=== PATIENT | male | born 2000 | race American Indian/Alaskan Native ===

== ENCOUNTER 2021-06-17 01:47 | Emergency (ER) | payer BC ==
[2021-06-17 03:08] VITALS: BP 133/68
--- NOTE | 2021-06-17 06:58 | Emergency Department Report ---
ED Upper Extremity Inj HPI - General Chief Complaint: Skin/Abscess/Foreign Body Stated Complaint: LARGE SPLINTER Source: patient Mode of arrival: Ambulatory Limitations: No Limitations - History of Present Illness Initial Comments: Patient is a 20-year-old -[place] male with no past medical history presents to the ED with complaint of acute onset persistent painful posterior left elbow puncture wound with suspected foreign body embedded in the tissues after he bumped his left elbow against a wooden beam at work and which resulted in a piece of splinter getting stuck in his skin and his tissues of this left elbow about 8 hours ago. Patient states that he initially presented at an urgent care clinic but the staff were unable to remove the foreign body in the left elbow. Patient states that he is up-to-date with all his tetanus vaccinations. Patient denies numbness and tingling or weakness of left arm, dizziness, syncope, fall, nausea and vomiting, chest pain or shortness of breath and neck pain. MD Complaint: Injury to:: left, elbow (posterior left elbow puncture wound with foreign body) -: Sudden, hour(s) (8) Other Extremity Injury: Elbow: Left (Posterior left elbow pain due to puncture wound with foreign body) Other Injuries: none Handedness: right Place: work Severity scale (0 -10): 6 Worsens With: movement of extremity Context: laceration (Posterior left elbow pain due to puncture wound with foreign body embedded in the tissues), injury Associated Symptoms: denies other symptoms. denies: weakness, suspects foreign body, nausea/vomiting, heard/felt popping sensat - Related Data Previous Rx's Medication Instructions Recorded Last Taken Type Ibuprofen [Motrin] 800 mg PO Q8HR PRN #30 tablet 06/17/21 Unknown Rx Sulfamethoxazole/Trimethoprim 1 each PO Q12H #20 tablet 06/17/21 Unknown Rx [Bactrim DS TAB] Allergies Allergy/AdvReac Type Severity Reaction Status Date / Time No Known Allergies Allergy Unverified 06/17/21 03:06 ED Review of Systems ROS: Stated complaint: LARGE SPLINTER Other details as noted in HPI Constitutional: denies: chills, fever Eyes: denies: eye pain, eye discharge, vision change ENT: denies: ear pain, throat pain Respiratory: denies: cough, shortness of breath, wheezing Cardiovascular: denies: chest pain, palpitations Endocrine: no symptoms reported Gastrointestinal: denies: abdominal pain, nausea, diarrhea Genitourinary: denies: urgency, dysuria Musculoskeletal: arthralgia (Procedure left elbow pain due to a small puncture wound with foreign body embedded in the tissues of the left elbow). denies: back pain, joint swelling Skin: other (Puncture wound of posterior left elbow with suspected foreign body in the tissues). denies: rash, lesions Neurological: denies: headache, weakness, paresthesias Psychiatric: denies: anxiety, depression Hematological/Lymphatic: denies: easy bleeding, easy bruising ED Past Medical Hx - Past Medical History Previous Medical History?: No - Surgical History Past Surgical History?: No - Medications Home Medications: Home Medications Medication Instructions Recorded Confirmed Last Taken Type Ibuprofen [Motrin] 800 mg PO Q8HR PRN #30 tablet 06/17/21 Unknown Rx Sulfamethoxazole/Trimethoprim 1 each PO Q12H #20 tablet 06/17/21 Unknown Rx [Bactrim DS TAB] ED Physical Exam - General Limitations: No Limitations General appearance: alert, in no apparent distress - Head Head exam: Present: atraumatic, normocephalic, normal inspection - Eye Eye exam: Present: normal appearance, PERRL, EOMI Pupils: Present: normal accommodation - ENT ENT exam: Present: normal exam, normal orophraynx, mucous membranes moist, TM's normal bilaterally, normal external ear exam - Neck Neck exam: Present: normal inspection, full ROM - Respiratory Respiratory exam: Present: normal lung sounds bilaterally. Absent: respiratory distress, wheezes, rales, chest wall tenderness, accessory muscle use, prolonged expiratory - Cardiovascular Cardiovascular Exam: Present: regular rate, normal rhythm, normal heart sounds. Absent: systolic murmur, diastolic murmur, rubs, gallop - GI/Abdominal GI/Abdominal exam: Present: soft, normal bowel sounds. Absent: tenderness, guarding, hyperactive bowel sounds, hypoactive bowel sounds, organomegaly - Extremities Exam Extremities exam: Present: normal inspection, tenderness (Palpable localized posterior left elbow soft tissue tenderness with palpable foreign body embedded in the skin.). Absent: full ROM, normal capillary refill, pedal edema, joint swelling, calf tenderness - Back Exam Back exam: Present: normal inspection, full ROM. Absent: tenderness, CVA tenderness (R), CVA tenderness (L), muscle spasm, paraspinal tenderness, vertebral tenderness - Neurological Exam Neurological exam: Present: alert, oriented X3, CN II-XII intact, normal gait, reflexes normal - Psychiatric Psychiatric exam: Present: normal affect, normal mood - Skin Skin exam: Present: warm, dry, intact, normal color, other (Small puncture wound on posterior left elbow with foreign body within the tissues). Absent: rash ED Course Vital Signs 06/17/21 03:07 Temperature 98.4 F Pulse Rate 78 Respiratory 18 Rate Blood Pressure 133/68 O2 Sat by Pulse 99 Oximetry - Procedure Description Procedures done: Foreign body removal from puncture wound of posterior left elbow: -The area was cleaned thoroughly with normal saline and Betadine solution. Local anesthetic lidocaine 1% solution with epi was infiltrated around the area and scalpel blade #11 used to slice the area and a hemostat used to remove the splinter which measured about 2.5 inches in length. The wound was thereafter approximated loosely with 4-0 Prolene suture. The wound was thereafter dressed appropriately and the patient tolerated procedure well. ED Medical Decision Making - Medical Decision Making This is a 20-year-old -[place] male with no past medical history presents to the ED with complaint of acute onset persistent painful posterior left elbow puncture wound with suspected foreign body embedded in the tissues after he bumped his left elbow against a wooden beam at work and which resulted in a piece of splinter getting stuck in his skin and his tissues of this left elbow about 8 hours ago. Patient states that he initially presented at an urgent care clinic but the staff were unable to remove the foreign body in the left elbow. Patient states that he is up-to-date with all his tetanus vaccinations. In the ED, patient is alert and oriented x3 and is not in any distress. The foreign body embedded within the tissues of the posterior left elbow was successfully removed after the area was anesthetized with lidocaine 1% solution with epi. The wound was then approximated loosely with Prolene 4-0 sutures and the patient tolerated procedure well. The wound was then dressed appropriately and the patient was discharged home on pain medication and prophylactic antibiotics. Patient was advised to return to the ED immediately if symptoms get worse, otherwise return to the ED in 12 to 14 days for suture removal. Patient was also advised to follow-up with his primary care physician in 7 to 10 days for reevaluation. - Differential Diagnosis Puncture wound; foreign body in tissue; left forearm contusion Critical care attestation.: If time is entered above; I have spent that time in minutes in the direct care of this critically ill patient, excluding procedure time. ED Disposition Clinical Impression: Puncture wound of left forearm with foreign body Qualifiers: Encounter type: initial encounter Qualified Code(s): S51.842A - Puncture wound with foreign body of left forearm, initial encounter Disposition: TO HOME OR SELFCARE Is pt being admited?: No Does the pt Need Aspirin: No Condition: Stable Instructions: Puncture Wound, [id number], Sutured Wound Care, [id number] Additional Instructions: Take medication with food, drink plenty of fluids and follow-up with your primary care physician in 7 to 10 days for reevaluation. Return to the ED immediately if symptoms get worse. Otherwise return to the ED or to your primary care physician in 12 to 14 days for suture removal. Prescriptions: Sulfamethoxazole/Trimethoprim [Bactrim DS TAB] 1 each PO Q12H #20 tablet Ibuprofen [Motrin] 800 mg PO Q8HR PRN #30 tablet PRN Reason: Pain , Severe (7-10) Referrals: [facility] [Provider Group] - 7-10 days Forms: Work/School Release Form(ED) Time of Disposition: 07:05 Print Language: SAL[place]ADORE[place]
== END 2021-06-17 08:09 | disposition home or self-care (01) ==
LOC: ED 01:47
DX: S51.842A Puncture wound with foreign body of left forearm, initial encounter (principal); Z79.899 Other long term (current) drug therapy; X58.XXXA Exposure to other specified factors, initial encounter; Y93.89 Activity, other specified; Y92.89 Other specified places as the place of occurrence of the external cause; Y99.0 Civilian activity done for income or pay